=== PATIENT | male | born 1940 | race Caucasian/White ===

== ENCOUNTER 2016-08-28 20:00 | Inpatient (IN) | payer OTHER, BC ==
--- NOTE | ~2016-08-28 | HP ---
History And Physical [place] [id number] [facility] [place]. [address] NAME: CHETNA LEA : 39 STATUS : ADM IN [facility]#: [id number] AGE: 75 ADM/REG DATE : 08/28/16 MR#: [id number] REPORT SERV DATE: 08/29/16 DICTATED BY: CHARITY KEITH DATE: 08/28/16 REPORT STATUS : Draft TRANSCRIBED BY: MODL DATE: 08/28/16 DATE OF ADMISSION: 08/28/2016 CHIEF COMPLAINT: A 75-year-old male presenting with upper GI bleed, melena. HISTORY OF PRESENT ILLNESS: The patient's history was obtained through careful interview with the patient, daughter, and his first coupled with review of [facility] medical records. The patient first started to notice black stool on 08/26/2016, he had three black tarry bowel movements that day and then on 08/27/2016 also had three black tarry bowel movements. Today he has noticed no further bowel movements. He has noticed no bright red blood per rectum, but he has been feeling increasingly weak and debilitated by the symptoms over the last few days. He is able to go back about three weeks noticing increasing fatigue and total lack of energy that has been progressive over that period of time. He also describes shaking spells, and he woke up about 3 a.m. on 08/28/2016 shaking and was so weak that he fell to the floor. There was no loss of consciousness. He was able to get back up into bed. There has been no lightheadedness though. No shortness of breath. No palpitations. No chest pain. No gastroesophageal reflux disorder symptoms. No nausea or vomiting. He has noticed chronic bruising issues, a sore in his mouth. No abdominal pain. He describes chronic back pain exacerbated by standing up. If he tries to walk or stand too long it can be an aching quality, up to 9/10 severity, otherwise lying down it only gets to about a 3/10 severity. REVIEW OF SYSTEMS: Otherwise, a 14-point review of systems was obtained and was negative. PAST MEDICAL HISTORY: 1. Atrial fibrillation, on chronic Eliquis, seen by Dr. Coles. 2. Diastolic congestive heart failure. 3. COPD. 4. Diabetes. 5. Depression and anxiety. 6. Gastroesophageal reflux disorder. 7. 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 8. Nephrolithiasis. History And Physical [address] [address] NAME: CHETNA LEA : 39 STATUS : ADM IN PAT#: [id number] AGE: 75 ADM/REG DATE : 08/28/16 MR#: [id number] REPORT SERV DATE: 08/29/16 DICTATED BY: CHARITY KEITH DATE: 08/28/16 REPORT STATUS : Draft TRANSCRIBED BY: SUKHDEV DATE: 08/28/16 9. Neuropathy. 10.Thrombocytopenia, baseline about 104 to 138. REVIEW OF SYSTEMS: Otherwise, a 14-point review of systems was obtained and was negative. PAST MEDICAL/SURGICAL HISTORY: 1. Back surgery. 2. Cholecystectomy. 3. Right hand surgery. 4. Hemorrhoidectomy. ALLERGIES: NO KNOWN DRUG ALLERGIES. SOCIAL HISTORY: The patient smokes about 1-1/2 packs per day. Quit alcohol about 10 years ago. He is , remarried, but then became a with regard to his second . He now lives alone in [place], [place]. He likes to go fishing. 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 He has two children, but only one daughter who lives locally. FAMILY HISTORY: Heart disease and cancer. CURRENT MEDICATIONS: 1. Elavil 10 mg p.o. q.h.s. 2. Eliquis 2.5 mg p.o. b.i.d. 3. Aspirin 81 mg daily. 4. Bumex 2 mg every morning. 5. Digoxin 250 mcg p.o. daily. 6. Diltiazem extended release 120 mg p.o. daily. 7. Lexapro 20 mg p.o. daily. 8. Flonase. 9. Neurontin 600 mg p.o. b.i.d. 10.Glipizide 20 mg p.o. b.i.d. 11.Advil 800 mg p.r.n. 12.Singulair 10 mg p.o. daily. 13.Percocet p.r.n. 14.Potassium 20 mEq p.o. daily. 15.Flomax 0.4 mg p.o. daily. 16.Hytrin 2 mg p.o. daily. 17.Theophylline extended release 300 mg p.o. b.i.d. 18.Trazodone 100 mg p.o. q.h.s. PHYSICAL EXAMINATION: VITAL SIGNS: Temperature 98.1, pulse 111, blood pressure 117/81, respiratory rate 25, and O2 saturation 94% on room air. GENERAL: An ill-appearing male, in no evidence of distress at this time, though he appears quite fatigued. HEENT: Pupils equal, round, and reactive to light. No conjunctival pallor. No scleral History And Physical [address] [address] NAME: CHETNA LEA : 39 STATUS : ADM IN [facility]#: [id number] AGE: 75 ADM/REG DATE : 08/28/16 MR#: [id number] REPORT SERV DATE: 08/29/16 DICTATED BY: CHARITY KEITH DATE: 08/28/16 REPORT STATUS : Draft TRANSCRIBED BY: SUKHDEV DATE: 08/28/16 icterus. Nares are patent. Oropharynx is clear of obstruction. He has an obvious ulcer at the top of his mouth. Dry mucous membranes. NECK: Trachea midline. No thyromegaly. LYMPH: No cervical lymphadenopathy. No supraclavicular lymphadenopathy. RESPIRATORY: Clear to auscultation at bases. No wheezes, rales, or rhonchi. Normal respiratory effort. CARDIOVASCULAR: Irregularly irregular, tachycardic. No murmurs, rubs, or gallops. No current extremity edema is appreciated. ABDOMEN: Soft, nontender, and nondistended. Normal bowel sounds auscultated throughout. No hepatosplenomegaly. DERMATOLOGICAL: Warm and dry extremities. No pallor. No cyanosis. There is tenting of the skin to suggest dehydration. PSYCHIATRIC: Normal affect. Good mood. Alert and oriented x3. LABORATORY DATA: White blood cell count 15, hemoglobin 13, hematocrit 43, MCV 100.7, and platelets 30. Sodium 140, potassium 3.7, chloride 106, bicarb 28, BUN 19, creatinine 1.07, and glucose 100. Hemoccult stool positive. INR 1.2. Troponin 0.04. Liver enzymes within normal limits. STUDIES: EKG by my own evaluation shows rapid atrial flutter, left axis deviation, right bundle-branch block. ASSESSMENT AND PLAN: 1. Upper gastrointestinal bleed. Place on IV proton pump inhibitor drip. Consult Dr. Fowler, truss designer, (discussed the case with Dr. Vásquez, truss designer on- call). 2. Rapid atrial fibrillation. Start a Cardizem drip IV. Check telemetry. May need to "reverse" Eliquis with PCC ? 3. Thrombocytopenia. Obtain a Hematology consult. I discussed the case with Dr. Larry henriquez. We will transfuse platelets with a goal of greater than 50, earlier this year platelets were as low as 104, but now dropped to 30. 4. Chronic obstructive pulmonary disease. Place on Duo Nebulizers. KPLory/SUKHDEV Charity Keith M.D. / [id number] History And Physical [address] [address] NAME: CHETNA LEA : 39 STATUS : ADM IN PAT#: [id number] AGE: 75 ADM/REG DATE : 08/28/16 MR#: [id number] REPORT SERV DATE: 08/29/16 DICTATED BY: CHARITY KEITH DATE: 08/28/16 REPORT STATUS : Draft TRANSCRIBED BY: SUKHDEV DATE: 08/28/16 CC: Lynette Bates M.D.
--- NOTE | ~2016-08-28 | DS ---
Discharge Summary [place] [address] [facility] [place]. [address] NAME: CHETNA LEA : 39 STATUS : DIS IN PAT#: [id number] AGE: 75 ADM/REG DATE : 08/28/16 MR#: [id number] REPORT SERV DATE: 09/02/16 DICTATED BY: CLEVELAND COLON DATE: 09/01/16 REPORT STATUS : Draft TRANSCRIBED BY: MODL DATE: 09/01/16 ADMISSION DATE: 08/28/2016 DISCHARGE DATE: 08/31/2016 REASON FOR ADMISSION: This is a 75-year-old male who had presented with upper GI bleed and melena on aspirin and Eliquis. DISCHARGE DIAGNOSES: 1. Gastrointestinal bleed with melena, positive for gastritis. 2. Thrombocytopenia. 3. Atrial fibrillation, on Eliquis. 4. Diabetes type 2 with neuropathy. 5. Chronic obstructive pulmonary disease. 6. Acute blood loss anemia, secondary to gastrointestinal bleed. HOSPITAL COURSE: GI bleed with melena. The patient was admitted after coming in with complaints of dark tarry stools. On admission, was found to have a hemoglobin of 13.4 and GI was consulted and Dr. Vásquez would see the patient. He would have endoscopy performed by Dr. Vásquez. Upper GI EGD performed on 08/30/2016, this would show normal esophagus, erythematous mucosa in the gastric fundus and gastric body, normal antrum, normal duodenal bulb, second part of the duodenum and third part of duodenum, and recommendations were no aspirin or ibuprofen or naproxen, use Protonix 40 mg p.o. b.i.d., advanced to regular diet and hold Eliquis x7 days. The patient would be transfused one pack of platelets due to thrombocytopenia. His platelet count was 60,000 at discharge. The patient did not require any packed red cell transfusion while here at the hospital. He did not have any further bloody bowel movements and his H and H were stable. His hemoglobin was 10.8 at discharge. DISCHARGE CONDITION: Stable. DISCHARGE MEDICATIONS: 1. Bumex 2 mg p.o. daily. 2. Potassium chloride 20 mEq p.o. daily. 3. Glipizide 20 mg p.o. b.i.d. 4. Neurontin 600 mg p.o. b.i.d. 5. Digoxin 250 mcg p.o. daily. 6. Flomax 0.4 mg p.o. daily. 7. Lexapro 20 mg p.o. daily. 8. Eliquis 2.5 mg p.o. b.i.d., to be held for 7 more days before resuming medication. 9. Theophylline 300 mg p.o. b.i.d. 10.Trazodone 50 mg p.o. at bedtime. 11.Hytrin 2 mg p.o. at bedtime. 12.Elavil 10 mg p.o. at bedtime. 13.Diltiazem extended release 120 mg p.o. daily. 14.Protonix 40 mg p.o. b.i.d. 15.Flonase nasal spray. Discharge Summary [address] [address] NAME: CHETNA LEA : 39 STATUS : DIS IN PAT#: [id number] AGE: 75 ADM/REG DATE : 08/28/16 MR#: [id number] REPORT SERV DATE: 09/02/16 DICTATED BY: CLEVELAND COLON DATE: 09/01/16 REPORT STATUS : Draft TRANSCRIBED BY: SUKHDEV DATE: 09/01/16 DISCHARGE PLAN: The patient is discharged home. Follow up with primary care, Joao Thompson in one to two weeks and continue holding Eliquis for 7 more days and then resume and discontinue aspirin altogether. DICTATED BY: LEFTY Reyes/SUKHDEV Cleveland Colon APN / [id number] CC: Lynette Bates M.D. Camille Sommer, MD
--- NOTE | ~2016-08-28 | EGD ---
EGD REPORT [facility] [address] [place] [address] NAME: JAVAD FLORES : 39 STATUS : ADM IN PAT#: [id number] AGE: 75 ADM/REG DATE : 08/28/16 MR#: [id number] REPORT SERV DATE: 08/30/16 DICTATED BY: CARIDAD SIDDIQI DATE: 08/30/16 REPORT STATUS : Draft TRANSCRIBED BY: [employer] DATE: 08/30/16 [facility] Patient Name: Javad Flores Date of : 1940 Attending MD: CARIDAD SIDDIQI, Procedure Date No Time: 08/30/2016 Procedure: Upper GI endoscopy Indications: Anemia, Melena Referring MD: BENTON HURST Medicines: Propofol per Anesthesia Complications: No immediate complications. Estimated blood loss: None. Procedure: Pre-Anesthesia Assessment: - ASA Grade Assessment: IV - A patient with severe systemic disease that is a constant threat to life. After obtaining informed consent, the endoscope was passed under direct vision. Throughout the procedure, the patient's blood pressure, pulse, and oxygen saturations were monitored continuously. The [facility] [id number] was introduced through the mouth, and advanced to the third part of duodenum. The upper GI endoscopy was accomplished with ease. The patient tolerated the procedure well. Findings: The examined esophagus was normal. The Z-line was found 50 cm from the incisors. Diffuse moderately erythematous mucosa was found in the gastric fundus and in the gastric body. The gastric antrum was normal. The duodenal bulb, 2nd part of the duodenum and 3rd part of the duodenum were normal. No active bleeding seen. Impression: - Normal esophagus. - Z-line 50 cm from the incisors. - Erythematous mucosa in the gastric fundus and gastric body. - Normal antrum. - Normal duodenal bulb, 2nd part of the duodenum and 3rd part of the duodenum. Recommendation: - [facility] patient to [facility] care. - Regular diet. - Use Protonix (pantoprazole) 40 mg PO BID. - No aspirin, ibuprofen, naproxen, or other EGD REPORT [address] [address] NAME: JAVAD FLORES : 38 STATUS : ADM IN [facility]#: [id number] AGE: 75 ADM/REG DATE : 08/28/16 MR#: [id number] REPORT SERV DATE: 08/30/16 DICTATED BY: CARIDAD SIDDIQI DATE: 08/30/16 REPORT STATUS : Draft TRANSCRIBED BY: Busuu DATE: 08/30/16 non-steroidal anti-inflammatory drugs. Procedure Code(s): --- Professional --- 79705, Esophagogastroduodenoscopy, flexible, transoral; diagnostic, including collection of specimen(s) by brushing or washing, when performed (separate procedure) Diagnosis Code(s): --- Professional --- K31.9, Disease of stomach and duodenum, unspecified D64.9, Anemia, unspecified K92.1, Melena CPT copyright 2013 [employer]. All rights reserved. The codes documented in this report are preliminary and upon book sorter review may be revised to meet current compliance requirements. CARIDAD SIDDIQI, 08/30/2016 6:38 PM This report has been signed electronically. Number of Addenda: 0 Note Initiated On: 08/30/2016 6:00 PM Scope Withdrawal Time 0 hours 0 minutes 0 seconds
--- NOTE | ~2016-08-28 | CN ---
Consultation Report [facility] [address] [place]. [address] NAME: CHETNA FLORES : 39 STATUS : ADM IN [facility]#: [id number] AGE: 75 ADM/REG DATE : 08/28/16 MR#: [id number] REPORT SERV DATE: 08/30/16 DICTATED BY: CARIDAD VÁSQUEZ DATE: 08/30/16 REPORT STATUS : Draft TRANSCRIBED BY: MODL DATE: 08/30/16 DATE OF CONSULTATION: 08/29/2016 REASON FOR CONSULTATION: Melena and anemia. HISTORY OF PRESENT ILLNESS: Mr. Flores is a 75-year-old gentleman with a history of atrial fibrillation, on Eliquis; COPD; diabetes; CHF; chronic thrombocytopenia who presented to [facility] with fatigue, anemia, and melena for 3 episodes starting 08/26/2016. He has not had a bowel movement since his admission, and his hemoglobin and hematocrit were 11.1 and 36.1, BUN 18, creatinine 0.92, platelets 44, INR 1.3. He did go into atrial fibrillation with RVR when he was in the emergency room. He has been stable since. PAST MEDICAL HISTORY: Atrial fibrillation, on Eliquis; diastolic CHF; COPD; diabetes; depression; anxiety; gastroesophageal reflux disease; adrenal mass; nephrolithiasis; neuropathy; thrombocytopenia. PAST SURGICAL HISTORY: Back surgery, cholecystectomy, right hand hemorrhoidectomy. ALLERGIES: NO KNOWN DRUG ALLERGIES. SOCIAL HISTORY: One and half pack per day, tobacco, quit alcohol 10 years ago. No drug use. MEDICATIONS: Reviewed. ALLERGIES: REVIEWED. PHYSICAL EXAMINATION: VITAL SIGNS: The patient is afebrile. His vital signs are stable. GENERAL: The patient is awake, alert, and oriented x3. Well developed, well nourished, in no acute distress. HEENT: Atraumatic, normocephalic. Anicteric. Mucous membranes moist. CARDIAC: S1, S2. CHEST: Clear. ABDOMEN: Soft, nontender, and nondistended. Bowel sounds are normoactive. LABORATORY DATA: Show WBC 11.9, hemoglobin 11.1, hematocrit 36.1, platelets 44. INR is 1.3. Sodium 144, potassium 3.3, chloride 110, bicarb 27, BUN 18, creatinine 0.92, glucose 132. Liver enzymes normal. IMPRESSION AND PLAN: GI bleed, suspect upper source given melena and anemia. The patient has been on Eliquis, has been off Eliquis for 1 day only. We will plan on doing an EGD for further evaluation. Appreciate Hematology regarding thrombocytopenia. Continue PPI. Continue supportive care. We will schedule EGD for further evaluation. I reviewed the procedure indications, risks, benefits, and alternatives with the patient, and he is agreeable to proceed. Consultation Report [address] [place]. [address] NAME: CHETNA FLORES : 38 STATUS : ADM IN [facility]#: [id number] AGE: 75 ADM/REG DATE : 08/28/16 MR#: [id number] REPORT SERV DATE: 08/30/16 DICTATED BY: CARIDAD VÁSQUEZ DATE: 08/30/16 REPORT STATUS : Draft TRANSCRIBED BY: SUKHDEV DATE: 08/30/16 DAVY/SUKHDEV Caridad Vásquez MD / [id number] CC: Lynette Bates
[2016-08-28 19:12] LABS: BASOPHILS 0.3 %; BASOPHILS ABSOLUTE 0.05 10/3/uL (0.0-0.16); EOSINOPHILS 3.5 %; EOSINOPHILS ABSOLUTE 0.53 10/3/uL (0.0-0.53); HEMATOCRIT 42.9 % (40.0-51.0); HEMOGLOBIN 13.4 g/dL (13.6-17.8); IMMATURE GRANULOCYTES 2.8 %; IMMATURE GRANULOCYTES ABSOLUTE 0.42 10/3/uL (0.0-0.11); LYMPHOCYTES 16.6 %; LYMPHOCYTES ABSOLUTE 2.48 10/3/uL (0.67-4.30); MEAN CORPUS HGB CONC 31.2 g/dL (32.0-36.0); MEAN CORPUSCULAR HEMOGLOB 31.5 pg (26.0-34.0); MEAN PLATELET VOLUME 10.8 fL (9.2-13.0); MONOCYTES 7.9 %; MONOCYTES ABSOLUTE 1.18 10/3/uL (0.21-1.20); NEUTROPHILS 68.9 %; RBC DISTRIBUTION WIDTH 14.9 % (12.0-16.0); RED CELL COUNT 4.26 10/6/uL (4.7-6.1)
[2016-08-28 19:13] LABS: ER CBC TAT 0 Hrs 07 Mins; MEAN CORPUSCULAR VOLUME 100.7 fL (80-100)
[2016-08-28 19:14] LABS: PLATELET COUNT 30 10/3/uL (150-400)
[2016-08-28 19:15] LABS: MANUAL DIFF NO %
[2016-08-28 19:22] LABS: INTERNATIONAL NORMAL RATI 1.2 UNITS (-); PROTIME (NOT ORD) 15.4 SEC (12.0-14.5)
[2016-08-28 19:23] LABS: PARTIAL THROMBO TIME 33.7 SEC (22.5-37.2)
[2016-08-28 19:39] LABS: ALBUMIN 3.5 G/DL (3.5-5.0); CALCIUM, SERUM 9.2 MG/DL (8.5-10.4); CHLORIDE, SERUM 106 MMOL/L (96-112); CREATININE 1.07 MG/DL (0.70-1.30); DIRECT BILIRUBIN 0.1 MG/DL (0.0-0.4); GFR AFRICAN AMERICAN 78 ML/MIN (>=60); GFR NON AFRICAN AMERICAN 67 ML/MIN (>=60); GLUCOSE, SERUM 100 MG/DL (60-99); POTASSIUM, SERUM 3.7 MMOL/L (3.5-5.3); SGOT(AST) 12 U/L (5-40); SGPT(ALT) 15 U/L (5-65); SODIUM, SERUM 140 MMOL/L (135-148); TOTAL PROTEIN 7.4 G/DL (6.0-8.5); TROPONIN I 0.04 NG/ML (<0.05)
[2016-08-28 19:40] LABS: ALKALINE PHOSPHATASE 139 U/L (45-117); BUN (BLOOD UREA NITROGEN) 19 MG/DL (6-23); CHEST PAIN PROFILE TAT 0 Hrs 33 Mins; CO2 (CARBON DIOXIDE) 28 MMOL/L (24-34); DIGOXIN 0.9 NG/ML (0.8-2.0); INDIRECT BILIRUBIN(NOT ORDER) 0.4 MG/DL (0.1-0.9); THEOPHYLLINE < 2.0 MCG/ML (8.0-15.0); TOTAL BILIRUBIN 0.5 MG/DL (0-1.2)
[2016-08-28 19:52] LABS: RBC MORPHOLOGY NORM (NORMAL)
[~2016-08-28 20:00] MED LIST: AFRIN15 NAS; AMIT10 PO; ASAB PO; ATEN25 PO; BETAPACE80 PO; BIST PO; BUM2 PO; CHANTIX1 PO; COREG6 PO; DIABETA5 PO; DIGITEK0.125 MG PO; ELIQUIS 2.5 MG2.5 MG PO; ENDOCET1 TA3 PO; FISH-EPA1000 MG PO; FLOMAX4 PO; FLONASE NAS; GLUCOPHAGE1000 MG PO; GLUCOTRO10 PO; GLUCPH PO; HYT2 PO; IBU-200200 MG PO; KDUR20 PO; KLOR-CON M2020 MEQ PO; L40 PO; LAN25 PO; LEXAPRO20 PO; MAXZIDE PO; MELA3 PO; NEUR100 PO; NEUR300 PO; NEUR600 PO; P10 PO; PERCOCET 10/3251 TAB PO; PLAVIX PO; PRIN2.5 PO; PROAIR HFA INH; SINGULAIR1 PO; SPIRIVA INH; T300 PO; TAZTIA X4 PO; TRAZ100 PO; TYLENOL PM PO; VALERIAN PO; VISINE0.05 % OPH
[2016-08-28] MEDS ORDERED: ADVIL PO (20:01)
[2016-08-29 04:24] LABS: BASOPHILS 0.3 %; BASOPHILS ABSOLUTE 0.04 10/3/uL (0.0-0.16); EOSINOPHILS 3.5 %; EOSINOPHILS ABSOLUTE 0.42 10/3/uL (0.0-0.53); HEMOGLOBIN 11.8 g/dL (13.6-17.8); IMMATURE GRANULOCYTES 2.4 %; IMMATURE GRANULOCYTES ABSOLUTE 0.28 10/3/uL (0.0-0.11); LYMPHOCYTES 19.2 %; LYMPHOCYTES ABSOLUTE 2.29 10/3/uL (0.67-4.30); MEAN CORPUS HGB CONC 31.3 g/dL (32.0-36.0); MEAN CORPUSCULAR HEMOGLOB 31.5 pg (26.0-34.0); MEAN CORPUSCULAR VOLUME 100.5 fL (80-100); MEAN PLATELET VOLUME 11.6 fL (9.2-13.0); MONOCYTES 8.3 %; MONOCYTES ABSOLUTE 0.99 10/3/uL (0.21-1.20); NEUTROPHILS 66.3 %; NEUTROPHILS ABSOLUTE 7.89 10/3/uL (2.02-8.40); RED CELL COUNT 3.75 10/6/uL (4.7-6.1); WHITE BLOOD CELLS 11.9 10/3/uL (4.5-10.5)
[2016-08-29 04:25] LABS: HEMATOCRIT 37.7 % (40.0-51.0); MANUAL DIFF NO %; PLATELET COUNT 44 10/3/uL (150-400)
[2016-08-29 04:33] LABS: INTERNATIONAL NORMAL RATI 1.3 UNITS (-); PARTIAL THROMBO TIME 34.6 SEC (22.5-37.2); PROTIME (NOT ORD) 15.6 SEC (12.0-14.5)
[2016-08-29 04:51] LABS: HYPOCHROMIA 1+ (3-10/OIF) (0-2/OIF); MACROCYTES 1+ (5-10/OIF) (0-5/OIF); POLYCHROMASIA 1+ (2-5/OIF) (0-1/OIF)
[2016-08-29 04:53] LABS: ALBUMIN 3.1 G/DL (3.5-5.0); BUN (BLOOD UREA NITROGEN) 18 MG/DL (6-23); CALCIUM, SERUM 9.7 MG/DL (8.5-10.4); CHLORIDE, SERUM 110 MMOL/L (96-112); CO2 (CARBON DIOXIDE) 27 MMOL/L (24-34); CREATININE 0.92 MG/DL (0.70-1.30); GFR AFRICAN AMERICAN 93 ML/MIN (>=60); GFR NON AFRICAN AMERICAN 81 ML/MIN (>=60); GLOBULIN 3.2 G/DL (2.5-4.1); GLUCOSE, SERUM 102 MG/DL (60-99); POTASSIUM, SERUM 3.3 MMOL/L (3.5-5.3); SGOT(AST) 10 U/L (5-40); SGPT(ALT) 13 U/L (5-65); SODIUM, SERUM 144 MMOL/L (135-148); TOTAL BILIRUBIN 0.5 MG/DL (0-1.2); TOTAL PROTEIN 6.3 G/DL (6.0-8.5); TROPONIN I 0.04 NG/ML (<0.05)
[2016-08-29 05:00] LABS: ALKALINE PHOSPHATASE 115 U/L (45-117); DIGOXIN 0.7 NG/ML (0.8-2.0)
[2016-08-29 09:03] LABS: HEMATOCRIT 36.1 % (40.0-51.0); HEMOGLOBIN 11.1 g/dL (13.6-17.8)
[2016-08-29 17:02] LABS: BASOPHILS 0.2 %; BASOPHILS ABSOLUTE 0.02 10/3/uL (0.0-0.16); HEMATOCRIT 36.9 % (40.0-51.0); HEMOGLOBIN 11.4 g/dL (13.6-17.8); IMMATURE GRANULOCYTES 3.7 %; IMMATURE GRANULOCYTES ABSOLUTE 0.37 10/3/uL (0.0-0.11); LYMPHOCYTES 17.6 %; LYMPHOCYTES ABSOLUTE 1.77 10/3/uL (0.67-4.30); MEAN CORPUS HGB CONC 30.9 g/dL (32.0-36.0); MEAN CORPUSCULAR HEMOGLOB 31.8 pg (26.0-34.0); MEAN CORPUSCULAR VOLUME 102.8 fL (80-100); MEAN PLATELET VOLUME 10.9 fL (9.2-13.0); MONOCYTES 7.8 %; MONOCYTES ABSOLUTE 0.78 10/3/uL (0.21-1.20); NEUTROPHILS 67.7 %; RBC DISTRIBUTION WIDTH 14.8 % (12.0-16.0); RED CELL COUNT 3.59 10/6/uL (4.7-6.1); RETICULOCYTE COUNT ABSOLUTE 72.5 10/3/uL (20.2-119.8)
[2016-08-29 17:04] LABS: MANUAL DIFF NO %; PLATELET COUNT 48 10/3/uL (150-400)
[2016-08-29 17:28] LABS: MACROCYTES 1+ (5-10/OIF) (0-5/OIF); OVALOCYTES 1+ (3-10/OIF) (0-2/OIF)
[2016-08-29 17:29] LABS: TEARDROP SHAPED RBCS OCC (0-2/OIF)
[2016-08-29 17:53] LABS: SED RATE 23 MM/HR (0-15)
[2016-08-30 00:57] LABS: BASOPHILS 0.2 %; BASOPHILS ABSOLUTE 0.02 10/3/uL (0.0-0.16); EOSINOPHILS 3.1 %; EOSINOPHILS ABSOLUTE 0.27 10/3/uL (0.0-0.53); HEMATOCRIT 35.5 % (40.0-51.0); HEMOGLOBIN 11.1 g/dL (13.6-17.8); IMMATURE GRANULOCYTES 3.4 %; IMMATURE GRANULOCYTES ABSOLUTE 0.29 10/3/uL (0.0-0.11); LYMPHOCYTES 17.8 %; LYMPHOCYTES ABSOLUTE 1.54 10/3/uL (0.67-4.30); MEAN CORPUS HGB CONC 31.3 g/dL (32.0-36.0); MEAN CORPUSCULAR VOLUME 102.3 fL (80-100); MEAN PLATELET VOLUME 10.4 fL (9.2-13.0); MONOCYTES 7.1 %; MONOCYTES ABSOLUTE 0.61 10/3/uL (0.21-1.20); NEUTROPHILS 68.4 %; RBC DISTRIBUTION WIDTH 14.6 % (12.0-16.0); RED CELL COUNT 3.47 10/6/uL (4.7-6.1); WHITE BLOOD CELLS 8.6 10/3/uL (4.5-10.5)
[2016-08-30 00:58] LABS: MANUAL DIFF NO %; PLATELET COUNT 40 10/3/uL (150-400)
[2016-08-30 01:14] LABS: T PROTEIN (ELECT)(NOT OR 5.8 G/DL (6.0-8.5)
[2016-08-30 01:37] LABS: CALCIUM, SERUM 8.8 MG/DL (8.5-10.4); CHLORIDE, SERUM 110 MMOL/L (96-112); CO2 (CARBON DIOXIDE) 28 MMOL/L (24-34); CREATININE 0.97 MG/DL (0.70-1.30); GFR AFRICAN AMERICAN 88 ML/MIN (>=60); GFR NON AFRICAN AMERICAN 76 ML/MIN (>=60); GLUCOSE, SERUM 102 MG/DL (60-99); POTASSIUM, SERUM 3.8 MMOL/L (3.5-5.3); SODIUM, SERUM 143 MMOL/L (135-148)
[2016-08-30 01:45] LABS: BUN (BLOOD UREA NITROGEN) 12 MG/DL (6-23)
[2016-08-30 02:33] LABS: RBC MORPHOLOGY NORM (NORMAL)
[2016-08-30 08:07] LABS: HEMATOCRIT 34.9 % (40.0-51.0); HEMOGLOBIN 10.8 g/dL (13.6-17.8)
[2016-08-30 10:38] LABS: HEPATITIS B SURFACE ANTIGEN NON-REACTIVE (NON-REACT)
[2016-08-30 10:49] LABS: A/G 1.48 RATIO (0.9-2.10); ALB RELATIVE % 59.6 % (60.0-89.0); ALBUMIN (ELECTRO) 3.46 GM/DL (3.2-5.5); ALPHA 1 (ELECTRO) 0.16 GM/DL (0.1-0.4); ALPHA 1 RELAT % (NOT ORD) 2.7 % (1.0-4.0); ALPHA 2 (ELECTRO) 0.68 GM/DL (0.5-1.10); ALPHA 2 RELAT % 11.8 % (4.5-26.0); BETA GLOBULIN (SPE) 0.72 GM/DL (0.60-1.30); BETA RELATIVE % 12.4 % (9.0-22.0); GAMMA GLOBULIN (SPE) 0.78 G/DL (0.70-1.60); GAMMA RELAT % 13.5 % (6.0-22.0)
[2016-08-30 10:55] LABS: HEPATITIS C ANTIBODY NON-REACTIVE (NON-REACT)
[2016-08-30 10:56] LABS: HEPATITIS B CORE AB IGM NON-REACTIVE (NON-REAC)
[2016-08-30 11:08] LABS: HEP A ANTIBODY IGM NON-REACTIVE (NON-REACT)
[2016-08-30 19:50] LABS: HEMATOCRIT 37.2 % (40.0-51.0); HEMOGLOBIN 11.6 g/dL (13.6-17.8)
[2016-08-31 01:20] LABS: BASOPHILS 0.3 %; BASOPHILS ABSOLUTE 0.03 10/3/uL (0.0-0.16); EOSINOPHILS 2.7 %; EOSINOPHILS ABSOLUTE 0.27 10/3/uL (0.0-0.53); HEMATOCRIT 36.8 % (40.0-51.0); HEMOGLOBIN 11.5 g/dL (13.6-17.8); IMMATURE GRANULOCYTES 2.6 %; IMMATURE GRANULOCYTES ABSOLUTE 0.26 10/3/uL (0.0-0.11); LYMPHOCYTES 13.6 %; LYMPHOCYTES ABSOLUTE 1.34 10/3/uL (0.67-4.30); MEAN CORPUS HGB CONC 31.3 g/dL (32.0-36.0); MEAN CORPUSCULAR HEMOGLOB 31.6 pg (26.0-34.0); MEAN CORPUSCULAR VOLUME 101.1 fL (80-100); MEAN PLATELET VOLUME 11.3 fL (9.2-13.0); MONOCYTES 7.7 %; MONOCYTES ABSOLUTE 0.76 10/3/uL (0.21-1.20); NEUTROPHILS 73.1 %; NEUTROPHILS ABSOLUTE 7.19 10/3/uL (2.02-8.40); RBC DISTRIBUTION WIDTH 14.3 % (12.0-16.0); RED CELL COUNT 3.64 10/6/uL (4.7-6.1); WHITE BLOOD CELLS 9.9 10/3/uL (4.5-10.5)
[2016-08-31 01:21] LABS: MANUAL DIFF NO %; PLATELET COUNT 60 10/3/uL (150-400)
[2016-08-31 01:30] LABS: BUN (BLOOD UREA NITROGEN) 9 MG/DL (6-23); CALCIUM, SERUM 9.1 MG/DL (8.5-10.4); CHLORIDE, SERUM 108 MMOL/L (96-112); CO2 (CARBON DIOXIDE) 27 MMOL/L (24-34); CREATININE 0.98 MG/DL (0.70-1.30); GFR AFRICAN AMERICAN 86 ML/MIN (>=60); GFR NON AFRICAN AMERICAN 75 ML/MIN (>=60); GLUCOSE, SERUM 95 MG/DL (60-99); POTASSIUM, SERUM 3.6 MMOL/L (3.5-5.3); SODIUM, SERUM 142 MMOL/L (135-148)
[2016-08-31 01:48] LABS: MACROCYTES 1+ (5-10/OIF) (0-5/OIF); PLATELET ESTIMATE DEC (ADEQUATE)
[2016-08-31 07:57] LABS: HEMATOCRIT 34.5 % (40.0-51.0); HEMOGLOBIN 10.8 g/dL (13.6-17.8)
[2016-08-31] MEDS ORDERED: PROTONIX PO (12:05)
[2016-09-02 11:13] LABS: HEMATOCRIT 36.9 % (())
== END 2016-08-31 12:58 | disposition home or self-care (01) | DRG 378 ==
LOC: ER 20:00 → 6NO 21:05
PROVIDERS: Emergency Medicine; Hospitalist; Internal Medicine; Internal Medicine Hematology & Oncology
PROC: 30233R1 Transfusion of Nonautologous Platelets into Peripheral Vein, Percutaneous Approach (ICD-10-PCS; principal; 2016-08-29)
PROC: 30233N1 Transfusion of Nonautologous Red Blood Cells into Peripheral Vein, Percutaneous Approach (ICD-10-PCS; 2016-08-29)
PROC: 0DJ08ZZ Inspection of Upper Intestinal Tract, Via Natural or Artificial Opening Endoscopic (ICD-10-PCS; 2016-08-30)
DX: K92.1 Melena (principal); I50.32 Chronic diastolic (congestive) heart failure; D69.6 Thrombocytopenia, unspecified; E11.40 Type 2 diabetes mellitus with diabetic neuropathy, unspecified; D62 Acute posthemorrhagic anemia; I48.91 Unspecified atrial fibrillation; F32.9 Major depressive disorder, single episode, unspecified; R40.0 Somnolence; K29.70 Gastritis, unspecified, without bleeding; F41.9 Anxiety disorder, unspecified; K21.9 Gastro-esophageal reflux disease without esophagitis; J44.9 Chronic obstructive pulmonary disease, unspecified; K31.9 Disease of stomach and duodenum, unspecified; Z87.442 Personal history of urinary calculi; Z90.49 Acquired absence of other specified parts of digestive tract; F17.210 Nicotine dependence, cigarettes, uncomplicated; Z79.82 Long term (current) use of aspirin; Z79.02 Long term (current) use of antithrombotics/antiplatelets
CPT/HCPCS: 36415; 71010; 80048; 80053; 80074; 80076; 80162; 80198; 82607; 82747; 82962; 83605; 83735; 83880; 84155; 84165; 84443; 84484; 85014; 85018; 85025; 85045; 85610; 85652; 85730; 86850; 86900; 86901; 86920; 93005; 94640; 99285; A9270-GY; C9113; P9035